=== PATIENT | male | born 1965 | race Caucasian/White ===

== ENCOUNTER 2017-06-14 13:02 | Observation (INO) ==
[2017-06-14] MEDS ORDERED: Acetaminophen 325 MG TABLET PO ONE (13:14)
--- NOTE | 2017-06-14 13:16 | Emergency Department Note ---
Disposition Clinical Impression: Sepsis Qualifiers: Sepsis type: sepsis due to unspecified organism Qualified Code(s): A41.9 - Sepsis, unspecified organism Pneumonia Qualifiers: Pneumonia type: due to unspecified organism Laterality: bilateral Lung location : unspecified part of lung Qualified Code(s): J18.9 - Pneumonia, unspecified organism Disposition: Admitted As Inpatient Condition: Fair Time of Disposition: 14:00 (Dr Ferreira) SOB HPI - General Chief Complaint: ED Shortness of Breath/Dyspnea Stated Complaint: shortness of breath Time Seen by Provider: 06/14/17 13:10 Source: patient, family Mode of arrival: ambulatory Limitations: no limitations, physical limitation Nursing Notes Reviewed: Yes Vital Signs Reviewed: Yes - History of Present Illness Patient was sent in from urgent care secondary to diagnosis of bilateral pneumonia. The patient reports cough and shortness of breath the past week that has been worsening. The patient denies any fever, chest pain or dizziness. He does have cough intermittently that is nonproductive. Pt Subjective Complaint: shortness of breath Onset (ago): week(s) (1) Context: recent illness, other Severity: severe Consistency/Duration: gradually worsening Improves with: rest Worsens with: exertion, coughing, inspiration Known history of: diabetes (Medically noncompliant) Associated symptoms: Reports: fever, cough, palpitations. Denies: chest pain, pain with inspiration, wheezing, sputum production, orthopnea, lower extremity pain, polyuria, polydipsia, parasthesias, hemoptysis, diaphoresis, nausea/ vomiting, syncope, abdominal pain, rash, sense of impending doom Treatment prior to arrival: none Cough present: Yes Cough Description: Involuntary Cough Frequency: Intermittent Sputum production: Yes Sputum Amount: Scant Sputum Color: Clear - Related Data Home oxygen amount: none Home Medications Medication Instructions Recorded Confirmed No Known Home Drugs 06/14/17 06/14/17 Allergies Allergy/AdvReac Type Severity Reaction Status Date / Time No Known Allergies Allergy Verified 06/14/17 11:49 All systems ED: reviewed and negative except as stated. Past Medical History - Past Medical History Medical history: Reports: diabetes Surgical history: Reports: no surgical history - Social History Smoking Status: Never smoker Smokeless Tobacco Status: No Alcohol use: Reports: occasionally Drug use: Reports: none Physical Exam - General Limitations: no limitations General appearance: alert - Head Head exam: atraumatic, normocephalic - Eye Eye exam: Present: normal appearance, PERRL, EOMI - ENT ENT exam: normal exam, mucous membranes dry - Neck Neck exam: Present: normal inspection, full ROM - Chest Chest inspection: Present: normal inspection, symmetric chest wall rise - Expanded Respiratory Exam Location: rales: Lower, Right, Left, rhonchi: Right, Left, Upper - Cardiovascular Cardiovascular exam: Present: normal rhythm, tachycardia. Absent: JVD - Abdominal Exam Abdominal exam: Present: soft, Non-Tender, normal bowel sounds - Extremities Exam Extremities exam: Present: normal inspection, full ROM, normal capillary refill. Absent: tenderness, pedal edema - Back Exam Back exam: Present: normal inspection, full ROM. Absent: tenderness - Neurological Exam Neurological exam: Present: alert, oriented X3 - Skin Skin exam: Present: warm, dry, intact Course - Reevaluation(s) Reevaluation #1: Stable ED course. Blood pressure 141/82, heart rate of 87 pulse ox of 96% respiratory rate of 19. The patient improved with his respiratory status. The patient capillary refill is unchanged. Heart and lung exam were also unchanged. The patient intact 2+ peripheral pulses. The patient skin was warm but not diaphoretic. The patient received approximately 30 mL/kg of IV fluids prior to this reevaluation. Time: 14:20 Vital Signs Temperature 100.2 F H 06/14/17 13:03 Pulse Rate 101 06/14/17 13:03 Respiratory Rate 22 06/14/17 13:03 Blood Pressure 142/83 06/14/17 13:03 O2 Sat by Pulse Oximetry 93 06/14/17 13:03 Temperature 99.2 F 06/14/17 14:33 Pulse Rate 98 06/14/17 14:33 Respiratory Rate 18 06/14/17 14:33 Blood Pressure 122/72 06/14/17 14:33 O2 Sat by Pulse Oximetry 96 06/14/17 14:33 Oxygen Delivery Oxygen Delivery Nasal Cannula Shortness of Breath/Dyspnea - Differential Diagnosis Likely: pneumonia - Medical Records Medical records reviewed: Yes I reviewed the patient's medical records. - Lab Data Lab results reviewed: Yes I reviewed the patient's lab results. Result diagrams: 06/14/17 13:25 06/14/17 13:25 Lab Results 06/14/17 06/14/17 06/14/17 Range/Units 13:25 13:25 13:25 WBC 13.2 H (4.3-11.1) K/mcL RBC 4.23 (4.19-5.50) M/mcL Hgb 12.7 L (12.9-16.9) g/dL Hct 35.4 L (37.5-50.1) % MCV 83.7 (83.0-100.0) fL MCH 30.0 (28.0-33.3) pg MCHC 35.9 H (31.6-35.5) g/dL RDW 11.7 (11.5-14.5) % Plt Count 279 (140-400) K/mcL MPV 10.2 (9.4-12.4) fL Seg Neutrophils % 70.0 % Band Neutrophils % 16.0 H (0-4) % Lymphocytes % 4.0 % Monocytes % 4.0 % Metamyelocytes % 4.0 H (0) % Myelocytes % 2.0 H (0) % Neutrophils # 11.4 H (1.6-8.9) K/mcL Lymphocytes # 0.5 L (0.6-4.6) K/mcL Monocytes # 0.5 (0.0-1.3) K/mcL Dohle Bodies Present A (Not Present) Platelet Estimate Normal (Normal) PT 12.7 H (9.4-12.1) Seconds INR 1.2 APTT 28.7 (26.0-36.0) Seconds Sodium 128 L (136-145) mEq/L Potassium 3.8 (3.5-5.1) mEq/L Chloride 91 L (98-107) mEq/L Carbon Dioxide 26 (23-29) mEq/L BUN 26 H (6-20) mg/dL Creatinine 1.03 (0.70-1.30) mg/dL Est GFR ( Amer) > 60 (> 60) Est GFR (Non-Af Amer) > 60 (> 60) BUN/Creatinine Ratio 25 (6-26) Glucose 214 H (70-105) mg/dL Calculated Osmolality 277 L (280-300) Lactic Acid (0.5-2.2) mmol/L Calcium 9.0 (8.6-10.3) mg/dL Phosphorus 2.2 L (2.7-4.5) mg/dL Magnesium 2.1 (1.6-2.6) mg/dL Total Bilirubin 0.5 (0.3-1.0) mg/dL Direct Bilirubin 0.2 (0.0-0.2) mg/dL Indirect Bilirubin 0.3 (0.0-1.2) mg/dL AST 9 L (13-39) Units/L ALT 7 (7-52) Units/L Alkaline Phosphatase 86 (34-104) Units/L Troponin I (< 0.04) ng/mL Serum Total Protein 6.7 (6.4-8.9) g/dL Albumin 3.0 L (3.5-5.7) g/dL Globulin 3.7 H (2.4-3.5) g/dL Albumin/Globulin Ratio 0.8 L (1.1-2.2) Beta-Hydroxybutyric Acd (0.02-0.27) mmol/L 06/14/17 06/14/17 06/14/17 Range/Units 13:25 13:25 13:25 WBC (4.3-11.1) K/mcL RBC (4.19-5.50) M/mcL Hgb (12.9-16.9) g/dL Hct (37.5-50.1) % MCV (83.0-100.0) fL MCH (28.0-33.3) pg MCHC (31.6-35.5) g/dL RDW (11.5-14.5) % Plt Count (140-400) K/mcL MPV (9.4-12.4) fL Seg Neutrophils % % Band Neutrophils % (0-4) % Lymphocytes % % Monocytes % % Metamyelocytes % (0) % Myelocytes % (0) % Neutrophils # (1.6-8.9) K/mcL Lymphocytes # (0.6-4.6) K/mcL Monocytes # (0.0-1.3) K/mcL Dohle Bodies (Not Present) Platelet Estimate (Normal) PT (9.4-12.1) Seconds INR APTT (26.0-36.0) Seconds Sodium (136-145) mEq/L Potassium (3.5-5.1) mEq/L Chloride (98-107) mEq/L Carbon Dioxide (23-29) mEq/L BUN (6-20) mg/dL Creatinine (0.70-1.30) mg/dL Est GFR ( Amer) (> 60) Est GFR (Non-Af Amer) (> 60) BUN/Creatinine Ratio (6-26) Glucose (70-105) mg/dL Calculated Osmolality (280-300) Lactic Acid 1.1 (0.5-2.2) mmol/L Calcium (8.6-10.3) mg/dL Phosphorus (2.7-4.5) mg/dL Magnesium (1.6-2.6) mg/dL Total Bilirubin (0.3-1.0) mg/dL Direct Bilirubin (0.0-0.2) mg/dL Indirect Bilirubin (0.0-1.2) mg/dL AST (13-39) Units/L ALT (7-52) Units/L Alkaline Phosphatase (34-104) Units/L Troponin I < 0.03 (< 0.04) ng/mL Serum Total Protein (6.4-8.9) g/dL Albumin (3.5-5.7) g/dL Globulin (2.4-3.5) g/dL Albumin/Globulin Ratio (1.1-2.2) Beta-Hydroxybutyric Acd 1.72 H (0.02-0.27) mmol/L - Radiology Data Radiology results reviewed: Yes I reviewed the patient's radiology results. Bibasilar opacities, likely representing infection the appropriate clinical setting. - EKG Data EKG attestation: Yes I reviewed and interpreted this EKG. Rate: Reports: tachycardia Rhythm: Reports: NSR Critical Care Time Critical Care Time: Yes Total Critical Care Time: 50 Attestation: Critical care performed: Time is exclusive of separately billable procedures. Time includes: direct patient care, patient reassessment, coordination of patient care, interpretation of data (laboratory data, radiology data, and respiratory data), review of patient's medical records, medical consultation and documentation of patient care. Procedures included in critical care time: Procedures excluded from critical care time: Sepsis Reassessment Note - Evaluation Sepsis Screen: Sepsis Risk Current Stage of Sepsis: sepsis Possible Source of Sepsis: pulmonary - Focused Exam Date of Encounter: 06/14/17 Time of Encounter: 14:00 Vital Signs: Vital Signs Temp Pulse Resp BP Pulse Ox 06/14/17 14:33 99.2 F 98 18 122/72 96 06/14/17 13:17 89 06/14/17 13:03 100.2 F H 101 22 142/83 93 Respiratory Exam: Present: rales, rhonchi Cardiovascular Exam: Present: RRR Capillary Refill: < 2 seconds Peripheral Pulse Strength: 4+ bounding Peripheral Pulse Location: Radial Skin Exam: normal turgor
[2017-06-14] MEDS ORDERED: 0.9 % Sodium Chloride 2,000 ML ONE (13:30)
[2017-06-14] MEDS: 0.9 % Sodium Chloride 1,000 ML IVC SCH ×2 (13:31→14:29)
[2017-06-14 13:40] LABS: Hematocrit 35.4 % (37.5-50.1); Hemoglobin 12.7 g/dL (12.9-16.9); Mean Corpuscular HGB Conc 35.9 g/dL (31.6-35.5); Mean Corpuscular Volume 83.7 fL (83.0-100.0); Mean Platelet Volume 10.2 fL (9.4-12.4); Platelet Count 279 K/mcL (140-400); Red Blood Count 4.23 M/mcL (4.19-5.50); Red Cell Distribution Width 11.7 % (11.5-14.5)
[2017-06-14 13:44] LABS: INR 1.2; Prothrombin Time 12.7 Seconds (9.4-12.1)
[2017-06-14 13:47] LABS: Activated Partial Thrombo Time 28.7 Seconds (26.0-36.0)
[2017-06-14 13:56] LABS: Alanine Aminotransferase 7 Units/L (7-52); Albumin/Globulin Ratio 0.8 (1.1-2.2); Alkaline Phosphatase 86 Units/L (34-104); Aspartate Amino Transferase 9 Units/L (13-39); BUN/Creatinine Ratio 25 (6-26); Bilirubin,Direct 0.2 mg/dL (0.0-0.2); Bilirubin,Indirect 0.3 mg/dL (0.0-1.2); Bilirubin,Total 0.5 mg/dL (0.3-1.0); Blood Urea Nitrogen 26 mg/dL (6-20); Carbon Dioxide 26 mEq/L (23-29); Chloride 91 mEq/L (98-107); Globulin 3.7 g/dL (2.4-3.5); Glucose 214 mg/dL (70-105); Magnesium 2.1 mg/dL (1.6-2.6); Osmolality,Calculated 277 (280-300); Phosphorous 2.2 mg/dL (2.7-4.5); Potassium 3.8 mEq/L (3.5-5.1); Sodium 128 mEq/L (136-145); Total Protein 6.7 g/dL (6.4-8.9); eGFR For Non-African Americans > 60 (> 60)
[2017-06-14] MEDS ORDERED: Levofloxacin 750 MG/150 ML 750 MG/150 ML BAG IVPB ONE (14:04)
[2017-06-14 14:15] LABS: Monocytes # 0.5 K/mcL (0.0-1.3)
[2017-06-14 14:16] LABS: Dohle Bodies Present (Not Present); Lymphocytes # 0.5 K/mcL (0.6-4.6); Neutrophils # 11.4 K/mcL (1.6-8.9); Platelet Estimate Normal (Normal)
[2017-06-14] MEDS ORDERED: Acetaminophen 325 MG TABLET PO PRN ×2 (14:21→15:15)
[2017-06-14] MEDS ORDERED: *HR* HYDROcodone/Acet 5/325 mg TABLET PO PRN ×2 (14:21→15:15)
[2017-06-14] MEDS ORDERED: Ketorolac 30 MG/ML VIAL IVP PRN ×2 (14:21→15:15)
[2017-06-14] MEDS ORDERED: Naloxone 0.4 MG/ML INJ IVP PRN ×2 (14:21→15:15)
[2017-06-14] MEDS ORDERED: Ondansetron 4 MG/2 ML VIAL IVP PRN ×3 (14:21→18:58)
[2017-06-14] MEDS ORDERED: 0.9 % Sodium Chloride 1,000 ML IVC SCH ×2 (14:30→15:15)
--- NOTE | 2017-06-14 19:03 | Internal Med History&Physical ---
Date of Encounter: 06/14/17 Time of Encounter: 18:30 Assessment and Plan (1) Pneumonia Current visit: Yes Status: Acute He has been started on Rocephin and Zithromax with Lactobacillus. Qualifiers: Pneumonia type: due to unspecified organism Laterality: bilateral Lung location: unspecified part of lung Qualified Code(s): J18.9 - Pneumonia, unspecified organism (2) Anemia Current visit: Yes Status: Acute Duration unknown. Will order anemia testing in a.m. Qualifiers: Anemia type: unspecified type Qualified Code(s): D64.9 - Anemia, unspecified (3) Hyponatremia Current visit: Yes Status: Acute Possible SIADH from pneumonia. Will continue IV normal saline and monitor labs. (4) Azotemia Current visit: Yes Status: Acute Continue IV fluids and recheck labs in a.m. (5) Hypophosphatemia Current visit: Yes Status: Acute Phosphorus level was 2.2. Will give Neutra-Phos and monitor labs. (6) DM type 2 (diabetes mellitus, type 2) Current visit: Yes Status: Chronic Will check hemoglobin A1c in a.m. Will hold Glucophage and do Accu-Cheks with SSI. Recheck serum ketones in a.m. Qualifiers: Diabetes mellitus complication status: with unspecified complications Diabetes mellitus superintendent marine oil terminal insulin use: without skilled nursing use Qualified Code( s): E11.8 - Type 2 diabetes mellitus with unspecified complications Internal Medicine - H&P: HPI Chief complaint: Weakness and dyspnea Admitted From: Emergency Dept Plans for Post Hospital Care: Home History of present illness: Mr. Gonzalez is a 52 year old male who was directed to [facility] ER from a local urgent care after he presented there with dyspnea and weakness onset June 08. He was evaluated and found to have bilateral pneumonia on chest x-ray. He denies fever or pain. He had a cough with minimal productivity. Her [facility] emergency room showed anemia, leukocytosis with left shift, and ketonemia. He was admitted to [facility] floor for ongoing care needs. He reports previous pneumonia summer 2016. He is a lifelong nonsmoker and has no known chronic lung disease. Denies any unusual environmental exposures. Past Med Surg Social Fam HX - Past Medical History Medical history: diabetes - Past Surgical History Surgical History: no surgical history - Social History Smoking Status: Never smoker Smokeless Tobacco Status: No Alcohol use: occasionally Drug use: none Internal Medicine - H&P: Meds No Known Home Drugs 06/14/17 [History] 3 Allergy/AdvReac Type Severity Reaction Status Date / Time No Known Allergies Allergy Verified 06/14/17 11:49 All Systems PM: A 10-system review of systems was performed and is negative for pertinent findings except as documented above in the HPI. Review of systems: Gen.: He states his weight has been stable the past 6 months Cardiovascular: He denies [place] hypertension heart failure angina DVT or pulmonary embolus Respiratory: As per history of present illness GI: Denies disorders of his liver gallbladder exocrine pancreas : He denies hematuria or dysuria or kidney stones Neurologic: He denies large distribution strokes or seizures. Endocrine: He was diagnosed with DM2 approximately 1997. He denies thyroid disease or hyperlipidemia Hematology/oncology: He had anemia on blood work in emergency room. He denies internal malignancies. Psychiatric: He denies anxiety or depression or other mental health issues Muscular skeletal: He had left knee surgery and right rotator cuff repair in the past. He denies gout or other bone joint or muscle disorders. - Constitutional Vitals: Temp Pulse Resp BP Pulse Ox 98.3 F 90 16 121/74 97 06/14/17 17:03 06/14/17 17:03 06/14/17 17:03 06/14/17 17:03 06/14/17 17:03 Exam: Gen.: He is a well-developed well-nourished male who appears in no severe distress at present time HEENT: Head is atraumatic and normocephalic. Eyes: EOMI. There is no scleral icterus. Mouth: Mucosa is moist. Neck: Supple and nontender. There is no thyromegaly or adenopathy noted. Heart: Regular without murmurs gallops or ectopics. Rate is approximately 112/ m. Lungs: No wheezes or crackles are heard. There is no egophony. Abdomen: Soft and nontender. No masses or guarding are noted. Extremities: There is no cyanosis edema or clubbing noted. Dorsalis pedis and posterior tibial pulses are 1-2 over 2 bilaterally. Neurologic: Mental status: He is talkative and a good historian. Cranial nerves : Smile is symmetric. Forehead wrinkles bilaterally. Tongue protrudes midline. EOMI. Motor: There is no pronator drift. Cerebellar: Finger to nose is intact bilaterally. Skin: Warm and dry Internal Med - H&P Results - Labs CBC & Chem 7: 06/14/17 13:25 06/14/17 13:25
[2017-06-14] MEDS: Lactobacillus 1 EACH CAP.SPRINK PO SCH (20:01)
[2017-06-14] MEDS: Azithromycin 500 MG in D5% in Water 250 ML IVPB SCH (20:03)
[2017-06-14] MEDS: cefTRIAXone 1,000 MG in Water for inj. (sterile) 20 ML 10 ML IVP SCH (21:20)
[2017-06-14] MEDS: 0.9 % Sodium Chloride w KCl 20 MEQ/1,000 ML MLS IVC SCH (21:22)
[2017-06-15 06:51] LABS: Hematocrit 34.3 % (37.5-50.1); Mean Corpuscular Hemoglobin 30.4 pg (28.0-33.3); Mean Corpuscular Volume 86.8 fL (83.0-100.0); Mean Platelet Volume 10.6 fL (9.4-12.4); Platelet Count 263 K/mcL (140-400); Red Blood Count 3.95 M/mcL (4.19-5.50); Red Cell Distribution Width 11.9 % (11.5-14.5)
[2017-06-15 07:17] LABS: BUN/Creatinine Ratio 30 (6-26); Blood Urea Nitrogen 21 mg/dL (6-20); Calcium 8.4 mg/dL (8.6-10.3); Carbon Dioxide 23 mEq/L (23-29); Chloride 99 mEq/L (98-107); Chol/HDL Ratio 3.1 (0-4.9); Cholesterol 119 mg/dL (< 200); Glucose 281 mg/dL (70-105); HDL Cholesterol 38 mg/dL (40-59); LDL Cholesterol,Calculated 64 mg/dL (0-99); Osmolality,Calculated 287 (280-300); Potassium 3.9 mEq/L (3.5-5.1); Sodium 132 mEq/L (136-145); Triglycerides 83 mg/dL (< 150); eGFR For Non-African Americans > 60 (> 60)
[2017-06-15 07:23] LABS: Lymphocytes # 1.5 K/mcL (0.6-4.6); Monocytes # 1.3 K/mcL (0.0-1.3); Neutrophils # 9.8 K/mcL (1.6-8.9)
[2017-06-15 07:24] LABS: Platelet Estimate Normal (Normal)
[2017-06-15] MEDS: cefTRIAXone 1,000 MG in Water for inj. (sterile) 20 ML 10 ML IVP SCH (09:40)
[2017-06-15] MEDS: Lactobacillus 1 EACH CAP.SPRINK PO SCH ×2 (09:40→21:44)
[2017-06-15] MEDS: 0.9 % Sodium Chloride w KCl 20 MEQ/1,000 ML MLS IVC SCH ×2 (09:45→18:45)
[2017-06-15 09:52] LABS: Hemoglobin A1C 13.8 %
[2017-06-15 10:21] LABS: Folate 13.4 ng/mL (3.0-16.0)
[2017-06-15 10:30] LABS: Vitamin B12 > 1500 pg/mL (250-1100)
--- NOTE | 2017-06-15 11:30 | Internal Med Progress Note ---
Date of Encounter: 06/15/17 Time of Encounter: 11:20 - Assessment and plan (1) Pneumonia Current Visit: Yes Status: Acute Assessment and plan: June 15. Continue Rocephin and Zithromax with lactobacillus. We will recheck labs in a.m. Qualifiers: Pneumonia type: due to unspecified organism Laterality: bilateral Lung location: unspecified part of lung Qualified Code(s): J18.9 - Pneumonia, unspecified organism (2) Anemia Current Visit: Yes Status: Acute Assessment and plan: June 15. Anemia testing pending Qualifiers: Anemia type: unspecified type Qualified Code(s): D64.9 - Anemia, unspecified (3) Hyponatremia Current Visit: Yes Status: Acute Assessment and plan: June 15. Improved. Continue present treatment (4) Azotemia Current Visit: Yes Status: Acute Assessment and plan: June 15. Improved. Continue present treatment (5) Hypophosphatemia Current Visit: Yes Status: Acute Assessment and plan: June 15. Continue Neutra-Phos. Recheck labs in a.m. (6) DM type 2 (diabetes mellitus, type 2) Current Visit: Yes Status: Chronic Qualifiers: Diabetes mellitus complication status: with unspecified complications Diabetes mellitus exterminator helper insulin use: without exterminator helper use Qualified Code( s): E11.8 - Type 2 diabetes mellitus with unspecified complications - Subjective Interval history: June 15. He has no new complaints and states he feels better. His appetite is still poor - Constitutional Vitals: Temp Pulse Resp BP Pulse Ox 98.5 F 93 16 125/78 97 06/15/17 10:52 06/15/17 10:52 06/15/17 10:52 06/15/17 10:52 06/15/17 10:52 Exam: He is resting comfortably in bed and appears in no acute distress. His affect is bright and cheerful. I reviewed his medications and lab results. Internal Medicine: Result - Labs CBC & Chem 7: 06/15/17 06:07 06/15/17 06:07 Labs: Short CBC 06/15/17 Range/Units 06:07 WBC 12.5 H (4.3-11.1) K/mcL Hgb 12.0 L (12.9-16.9) g/dL Hct 34.3 L (37.5-50.1) % Plt Count 263 (140-400) K/mcL Neutrophils # 9.8 H (1.6-8.9) K/mcL BMP 06/15/17 06:07 Sodium 132 L Potassium 3.9 Chloride 99 Carbon Dioxide 23 BUN 21 H Creatinine 0.69 L Glucose 281 H Calcium 8.4 L - ABG Interpretation ABG results: PT/INR, D-dimer PT 12.7 Seconds (9.4-12.1) H 06/14/17 13:25 Consult Discharge Plan - Plan Referrals: Ana Maria Davis MD [Primary Care Provider] - 1 week
[2017-06-15 12:25] LABS: % Iron Saturation 23 % (20-55); Ferritin > 1350 ng/ml (20-250); Iron 35 mcg/dL (65-175); Transferrin 107 mg/dL (203-362)
[2017-06-15] MEDS ORDERED: *HR* Dextrose 50 % in Water (Syg) 50 ML SYRINGE IVP PRN (12:48)
[2017-06-15] MEDS ORDERED: Dextrose Gel 15 GM/37.5 ML TUBE PO PRN ×2 (12:48)
[2017-06-15] MEDS ORDERED: D5% in Water 1,000 ML IVC PRN (12:48)
[2017-06-15] MEDS: Insulin LISPRO 300 UNITS/3 ML VIAL SQ SCH (17:06)
[2017-06-15] MEDS: Azithromycin 500 MG in D5% in Water 250 ML IVPB SCH (20:00)
[2017-06-15] MEDS ORDERED: Insulin LISPRO 300 UNITS/3 ML VIAL SQ SCH (21:00)
[2017-06-16] MEDS: 0.9 % Sodium Chloride w KCl 20 MEQ/1,000 ML MLS IVC SCH (05:00)
[2017-06-16 06:01] LABS: Basophils # 0.1 K/mcL (0.0-0.2); Basophils % 0.4 %; Eosinophils # 0.1 K/mcL (0.0-0.6); Eosinophils % 0.7 %; Hematocrit 32.3 % (37.5-50.1); Hemoglobin 11.4 g/dL (12.9-16.9); Lymphocytes # 1.3 K/mcL (0.6-4.6); Lymphocytes % 9.9 %; Mean Corpuscular HGB Conc 35.3 g/dL (31.6-35.5); Mean Corpuscular Hemoglobin 30.2 pg (28.0-33.3); Mean Corpuscular Volume 85.4 fL (83.0-100.0); Mean Platelet Volume 10.2 fL (9.4-12.4); Monocytes # 0.9 K/mcL (0.0-1.3); Monocytes % 6.5 %; Platelet Count 298 K/mcL (140-400); Red Blood Count 3.78 M/mcL (4.19-5.50); Red Cell Distribution Width 11.9 % (11.5-14.5); Segmented Neutrophils % 81.5 %
[2017-06-16 06:27] LABS: BUN/Creatinine Ratio 23 (6-26); Blood Urea Nitrogen 12 mg/dL (6-20); Calcium 7.9 mg/dL (8.6-10.3); Carbon Dioxide 21 mEq/L (23-29); Chloride 100 mEq/L (98-107); Glucose 371 mg/dL (70-105); Osmolality,Calculated 285 (280-300); Potassium 4.1 mEq/L (3.5-5.1); Sodium 130 mEq/L (136-145); eGFR For Non-African Americans > 60 (> 60)
[2017-06-16 06:50] LABS: Platelet Estimate Normal (Normal)
[2017-06-16] MEDS: Lactobacillus 1 EACH CAP.SPRINK PO SCH (07:58)
[2017-06-16] MEDS: cefTRIAXone 1,000 MG in Water for inj. (sterile) 20 ML 10 ML IVP SCH (07:58)
[2017-06-16] MEDS: Insulin LISPRO 300 UNITS/3 ML VIAL SQ SCH (07:59)
--- NOTE | 2017-06-16 09:59 | Discharge Summary ---
Date of Encounter: 06/16/17 Time of Encounter: 09:50 - Discharge Diagnosis (1) Pneumonia Priority: Primary Status: Acute Qualifiers: Pneumonia type: due to unspecified organism Laterality: bilateral Lung location: unspecified part of lung Qualified Code(s): J18.9 - Pneumonia, unspecified organism (2) Anemia Priority: Secondary Status: Acute Qualifiers: Anemia type: unspecified type Qualified Code(s): D64.9 - Anemia, unspecified (3) Hyponatremia Priority: Secondary Status: Acute (4) Azotemia Priority: Secondary Status: Resolved (5) Hypophosphatemia Priority: Secondary Status: Acute (6) DM type 2 (diabetes mellitus, type 2) Priority: Secondary Status: Chronic Qualifiers: Diabetes mellitus complication status: with unspecified complications Diabetes mellitus emt intermediate insulin use: without emt intermediate use Qualified Code( s): E11.8 - Type 2 diabetes mellitus with unspecified complications Hospital course: Mr. Gonzalez is a 52 year old male who was directed to [facility] ER from a local urgent care after he presented there with dyspnea and weakness onset June 08. He was evaluated and found to have bilateral pneumonia on chest x-ray. He denies fever or pain. He had a cough with minimal productivity. Evaluation in emergency room showed anemia, leukocytosis with left shift, and ketonemia. He was admitted to [facility] floor for ongoing care needs. Initial orders were written by the emergency room physician. I saw him on June 14 and performed the history and physical. He was started on Rocephin and Zithromax with lactobacillus for pneumonia. He had clinical improvement and remained afebrile the last 24 hours of hospitalization. Room air oximetry will be checked prior to discharge. He will continue with antibiotic and probiotic for 5 additional days at discharge. Anemia testing showed iron 35, transferrin saturation 23%, transferrin 107, ferritin > 1350, B 12 > 1500, and folate 13.4. Hemoglobin decreased with IV fluids to 11.4 on day of discharge. His PCP can monitor this. BUN and creatinine improved to 12 and 0.52 respectively by day of discharge. Hemoglobin A1c returned significantly elevated at 13.8%. He will be given metformin 500 mg twice a day and Amaryl 1 mg daily at discharge. On June 24 he felt stable for discharge home. He will follow with his PCP within one week. - Time Spent with Patient Total time spent providing and/or coordinating discharge services: - Discharge Medications Prescriptions: Amoxicillin/Clavulanate [Augmentin] 875 mg PO BIDWM #10 tablet Doxycycline 100 mg PO BID #10 capsule Glimepiride [Amaryl] 1 mg PO 0800 #15 tablet Lactobacillus [Culturelle] 1 each PO BID #10 cap.sprink metFORMIN [Glucophage] 500 mg PO BIDWM #60 tablet Phos-NaK [Neutra-Phos] 1 each PO BID #10 powd.pack Home Medications: Amoxicillin/Clavulanate [Augmentin] 875 mg PO BIDWM #10 tablet 06/16/17 [Rx] Doxycycline 100 mg PO BID #10 capsule 06/16/17 [Rx] Glimepiride [Amaryl] 1 mg PO 0800 #15 tablet 06/16/17 [Rx] Lactobacillus [Culturelle] 1 each PO BID #10 cap.sprink 06/16/17 [Rx] Phos-NaK [Neutra-Phos] 1 each PO BID #10 powd.pack 06/16/17 [Rx] metFORMIN [Glucophage] 500 mg PO BIDWM #60 tablet 06/16/17 [Rx] Allergies/Adverse Reactions: 3 Allergy/AdvReac Type Severity Reaction Status Date / Time No Known Allergies Allergy Verified 06/14/17 11:49 Date of admission: 06/14/17 15:05 Primary care physician: Ana Maria Davis MD - Constitutional Vitals: Temp Pulse Resp BP Pulse Ox 98.6 F 86 16 112/68 96 06/16/17 06:52 06/16/17 06:52 06/16/17 06:52 06/16/17 06:52 06/16/17 06:52 - Patient Status Disposition: Home, Self-Care Condition: Fair Functional capacity at discharge: independent ambulation Overall status at discharge: patient is progressing back to baseline - Discharge Instructions Follow Up With: Ana Maria Davis MD [Primary Care Provider] - 1 week - Diet and Activity Activity: resume usual activities as tolerated Diet: diabetic diet
[2017-06-16 10:36] VITALS: BP 106/70
== END 2017-06-16 11:50 | disposition home or self-care (01) ==
LOC: EMEROOPIK 13:02 → INPPIK 13:02
PROVIDERS: ADMIT Internal Medicine; ATTEND Internal Medicine